=== PATIENT | male | born 1960 | race Caucasian/White ===

== ENCOUNTER 2017-08-07 15:49 | Emergency (ER) | payer SELFPAY ==
--- NOTE | 2017-08-07 16:23 | EDM.PDOC ---
ED HPI GENERAL MEDICAL PROBLEM - General Chief Complaint: Lower Extremity Injury/Pain Stated Complaint: [facility] Time Seen by Provider: 08/07/17 16:13 Source of Information: Reports: Patient History Limitations: Reports: No Limitations - History of Present Illness INITIAL COMMENTS - FREE TEXT/NARRATIVE: 48-year-old male presents via [facility] for evaluation and treatment of joint pain to the bilateral knees and feet. Reportedly the pain has been going on for several months. He states that today he is primarily having pain to the left lateral foot. Complains of stiffness from the knees down to his feet. Describes the pain as a dull ache and rates the pain as an 8 out of 10. States he is having difficulty walking today due to the stiffness. No numbness or tingling. No fevers or chills. Patient has been seen for the pain. Treatments [employer]: Reports: Other (see below) Other Treatments [employer]: tylenol 2 tabs last noc - Related Data Allergies Allergy/AdvReac Type Severity Reaction Status Date / Time No Known Allergies Allergy Verified 08/07/17 16:03 Home Meds: Home Meds Naproxen 500 mg PO BID PRN #20 tablet 08/07/17 [Rx] Past Medical History - Past Health History Medical/Surgical History: Denies Medical/Surgical History Social & Family History - Tobacco Use Smoking Status *Q: Never Smoker - Caffeine Use Caffeine Use: Reports: Soda - Recreational Drug Use Recreational Drug Use: No Review of Systems - Review of Systems Review Of Systems: See Below Constitutional: Denies: Chills, Fever Musculoskeletal: Reports: Leg Pain (knees to feet), Joint Pain (bilateral knee and bilateral ankle pain). Denies: Back Pain, Joint Swelling Skin: Denies: Erythema Neurological: Denies: Numbness, Tingling ED EXAM, GENERAL - Physical Exam Exam: See Below Exam Limited By: No Limitations General Appearance: Alert, WD/WN, No Apparent Distress Eye Exam: Bilateral Eye: Normal Inspection Ears: Normal External Exam Nose: Normal Inspection Throat/Mouth: Normal Inspection, Normal Voice, No Airway Compromise Neck: Normal Inspection Respiratory/Chest: No Respiratory Distress, Lungs Clear, Normal Breath Sounds Cardiovascular: Normal Peripheral Pulses, Regular Rate, Rhythm, No Murmur Peripheral Pulses: 3+: Posterior Tibial (L), Posterior Tibial (R), Dorsalis Pedis (L), Dorsalis Pedis (R) (Male) Exam: Scrotal Swelling Back Exam: Normal Inspection. No: Vertebral Tenderness Extremities: Normal Inspection, Non-Tender, Normal Capillary Refill, Other ( dorsiflexion and plantarflexion 5/5 bilaterally; negative babinsky sign, no clonus, 1+ achilles and 2+ patallar reflexes bilaterally). No: Joint Swelling, Domingo's Sign Neurological: Alert, Oriented, Normal Cognition Psychiatric: Normal Affect, Normal Mood Skin Exam: Warm, Dry, Normal Color Course - Vital Signs Last Recorded V/S: Last Vital Signs Temp 99.0 F 08/07/17 15:58 Pulse 87 08/07/17 15:58 Resp 20 08/07/17 15:58 BP 159/89 H 08/07/17 15:58 Pulse Ox 94 L 08/07/17 15:58 - Orders/Labs/Meds Orders: Active Orders 24 hr Category Date Time Status Foot Comp Min 3V Lt [CR] Stat Exams 08/07/17 16:36 Taken Labs: Laboratory Tests 08/07/17 08/07/17 Range/Units 19:43 19:43 WBC 10.41 H (4.23-9.07) K/mm3 RBC 5.10 (4.63-6.08) M/mm3 Hgb 15.6 (13.7-17.5) gm/L Hct 45.0 (40.1-51.0) % MCV 88.2 (79.0-92.2) fl MCH 30.6 (25.7-32.2) pg MCHC 34.7 (32.2-35.5) g/dl RDW Std Deviation 43.5 (35.1-43.9) fL Plt Count 259 (163-337) K/mm3 MPV 10.9 (9.4-12.3) fl Neut % (Auto) 80.3 H (34.0-67.9) % Lymph % (Auto) 12.1 L (21.8-53.1) % [place] % (Auto) 6.9 (5.3-12.2) % Eos % (Auto) 0.1 L (0.8-7.0) Baso % (Auto) 0.3 (0.1-1.2) % Neut # (Auto) 8.36 H (1.78-5.38) K/mm3 Lymph # (Auto) 1.26 L (1.32-3.57) K/mm3 [place] # (Auto) 0.72 (0.30-0.82) K/mm3 Eos # (Auto) 0.01 L (0.04-0.54) K/mm3 Baso # (Auto) 0.03 (0.01-0.08) K/mm3 Sodium 141 (136-145) mEq/L Potassium 3.9 (3.5-5.1) mEq/L Chloride 104 (98-107) mEq/L Carbon Dioxide 23 (21-32) mEq/L Anion Gap 17.9 H (5-15) BUN 15 (7-18) mg/dL Creatinine 1.1 (0.7-1.3) mg/dL Est Cr Clr Drug Dosing 73.20 mL/min Estimated GFR (MDRD) > 60 (>60) mL/min BUN/Creatinine Ratio 13.6 L (14-18) Glucose 110 H (74-106) mg/dL Calcium 9.9 (8.5-10.1) mg/dL Magnesium 1.7 L (1.8-2.4) mg/dl Total Bilirubin 0.6 (0.2-1.0) mg/dL AST 19 (15-37) U/L ALT 28 (16-63) U/L Alkaline Phosphatase 80 (46-116) U/L Total Protein 7.6 (6.4-8.2) g/dl Albumin 3.9 (3.4-5.0) g/dl Globulin 3.7 gm/dL Albumin/Globulin Ratio 1.1 (1-2) Meds: Medications Discontinued Medications Generic Name Dose Route Start Last Admin Trade Name Freq PRN Reason Stop Dose Admin Ketorolac Tromethamine 30 mg 08/07/17 18:00 08/07/17 18:24 Toradol IM 08/07/17 18:01 30 mg ONETIME ONE Administration Orphenadrine Citrate 100 mg 08/07/17 19:25 08/07/17 19:30 Norflex PO 08/07/17 19:26 100 mg NOW STA Administration - Radiology Interpretation Free Text/Narrative:: xray of the left foot shows no acute fractures or dislocations. - Re-Assessments/Exams Free Text/Narrative Re-Assessment/Exam: 08/07/17 19:25 The patient was discharged as I believe his pain to be arthritic in nature. Nursing staff can inform me that he was not able to walk. Questionable he is on willing or unable to due to weakness or pain. I checked on the patient. He was standing at his bedside. Shuffled forward a few steps. We then got him a walker and he was able to walk, shuffling gait, with the walker. Without the walker he is unwilling or unable to walk. He states that he cannot go home like this. I reexamine the patient. He is currently complaining of pain to the muscles. Earlier he was complaining of pain to the bilateral knees, feet and ankles. He now tells me he has pain from the knees down to his feet. Earlier when I interviewed the patient is better was not present that his brother is now present. Patient's demeanor has changed and he often looks to his brother for answers. 08/07/17 20:25 Reviewed the lab studies with the patient. Will discharge home at this time. Perception for Norflex Twice a day for 10 days written Departure - Departure Time of Disposition: 17:41 Disposition: Home, Self-Care 01 Condition: Good Clinical Impression: Joint pain - Discharge Information Prescriptions: Naproxen 500 mg PO BID PRN #20 tablet PRN Reason: Pain Instructions: Joint Pain Referrals: PCP,None [Primary Care Provider] - Christina Monsivais MD [Physician] - Forms: ED Department Discharge Additional Instructions: Take the naproxen 1 tab twice a day as needed for pain and discomfort. Take the Norflex 1 tab twice a day as needed for muscle pain and spasm. Follow-up with family medicine within 2 weeks for recheck of your symptoms. Recommend Dr. Monsivais at the [facility]. Call [phone] schedule with her. Recommend using ice for additional pain relief. He may also try topical products such as Icyhot or BenGay. Please return to the ER if your symptoms change or worsen. Use the walker as needed for mobility. - My Orders Last 24 Hours: My Active Orders 08/07/17 16:36 Foot Comp Min 3V Lt [CR] Stat - Assessment/Plan Last 24 Hours: My Active Orders 08/07/17 16:36 Foot Comp Min 3V Lt [CR] Stat
[2017-08-07] MEDS ORDERED: Ketorolac 30 MG/ML SDV IM ONE (18:00)
[2017-08-07] MEDS ORDERED: Orphenadrine 100 MG Tab.ER PO STA (19:25)
--- NOTE | 2017-08-10 09:45 | CR ---
Left foot: Four views of the left foot were obtained. Comparison: No prior foot exam. Very small plantar spur is noted. Vascular calcification is seen. No acute fracture, dislocation or other bony abnormality is seen. Incidental findings. Nothing acute is appreciated on left foot study. Diagnostic code #2
== END 2017-08-07 20:44 | disposition home or self-care (01) ==
LOC: JD.ED 15:49
DX: M25.561 Pain in right knee (principal); M25.562 Pain in left knee; M25.572 Pain in left ankle and joints of left foot; M25.571 Pain in right ankle and joints of right foot
CPT/HCPCS: 36415; 73630; 80053; 83735; 85025; 96372; 99284; A9270; J1885; 99283

== ENCOUNTER 2017-08-08 08:02 | Emergency (ER) | payer SELFPAY ==
[2017-08-08] MEDS ORDERED: Sodium Chloride 0.9% 10 ML Syringe FLUSH PRN (08:41)
[2017-08-08] MEDS ORDERED: Sodium Chloride 0.9% 1,000 ML IV SCH (08:45)
--- NOTE | 2017-08-08 08:58 | EDM.PDOC ---
<Martha Mensah - Last Filed: 08/08/17 08:53> ED HPI GENERAL MEDICAL PROBLEM - General Chief Complaint: Lower Extremity Injury/Pain Stated Complaint: [facility] Time Seen by Provider: 08/08/17 08:21 Source of Information: Reports: Patient History Limitations: Reports: No Limitations - History of Present Illness INITIAL COMMENTS - FREE TEXT/NARRATIVE: Pt returns to the ED by ambulance for increased weakness in his lower extremities. He reports being seen here yesterday and believed the shot he received helped temporarily last night, but when he awoke this morning his symptoms were worse. he reports weakness from the knees down with associated pain, tenderness to palpation, burning sensation at night and cramping. This originally started in Apr 2017 and has been getting progressively worse. He denies numbness and reports normal sensation. His weakness makes him fall frequently and unable to ambulate at home. He lives with his brothers who he believes can help him at times. He denies h/o diabetes or any other chronic problems. No associated symptoms, denies back pain or h/o back problems. Denies any recent falls, denies recent trauma or injury. Onset: Gradual Duration: Week(s): (4 months), Getting Worse Location: Reports: Lower Extremity, Left, Lower Extremity, Right Quality: Reports: Ache, Other (cramping) Severity: Moderate Improves with: Reports: None Worsens with: Reports: Movement Associated Symptoms: Reports: No Other Symptoms Left Ankle Pain Score (Numeric/FACES): 10 Bilateral Knee Pain Score (Numeric/FACES): 10 - Related Data Allergies Allergy/AdvReac Type Severity Reaction Status Date / Time No Known Allergies Allergy Verified 08/08/17 08:13 Home Meds: Home Meds Naproxen 500 mg PO BID PRN #20 tablet 08/07/17 [Rx] Past Medical History - Past Health History Medical/Surgical History: Denies Medical/Surgical History Other Musculoskeletal History: recent issues with ambulation, muscle/joint pain to lower extremities. c/o upper extremities joint pain as well. - Infectious Disease History Infectious Disease History: Reports: Chicken Pox, Measles Social & Family History - Tobacco Use Smoking Status *Q: Never Smoker Second Hand Smoke Exposure: No - Caffeine Use Caffeine Use: Reports: Soda - Recreational Drug Use Recreational Drug Use: No Review of Systems - Review of Systems Constitutional: Reports: Weakness (from the knees down). Denies: Chills, Fever Eyes: Reports: No Symptoms Ears: Reports: No Symptoms Nose: Reports: No Symptoms Mouth/Throat: Reports: No Symptoms Respiratory: Reports: No Symptoms. Denies: Shortness of Breath, Wheezing, Cough Cardiovascular: Reports: No Symptoms. Denies: Chest Pain, Edema, Lightheadedness GI/Abdominal: Reports: No Symptoms. Denies: Abdominal Pain, Diarrhea, Nausea, Vomiting Genitourinary: Reports: No Symptoms Musculoskeletal: Reports: Leg Pain (knees down bilaterally), Joint Pain (ankles bilaterally), Muscle Pain, Muscle Stiffness. Denies: Back Pain Skin: Reports: No Symptoms. Denies: Cyanosis, Pallor, Change in Color Neurological: Reports: Difficulty Walking, Weakness (legs bilaterally), Gait Disturbance. Denies: Dizziness, Headache, Numbness, Paresthesia, Tingling Psychiatric: Reports: No Symptoms ED EXAM, GENERAL - Physical Exam Exam: See Below Exam Limited By: No Limitations General Appearance: Alert, WD/WN, No Apparent Distress Ears: Normal External Exam, Hearing Grossly Normal Nose: Normal Inspection Head: Atraumatic, Normocephalic Neck: Normal Inspection, Supple, Full Range of Motion Respiratory/Chest: No Respiratory Distress, Lungs Clear, Normal Breath Sounds, No Accessory Muscle Use, Chest Non-Tender Cardiovascular: Normal Peripheral Pulses, Regular Rate, Rhythm, No Edema, No Gallop, No Murmur, No Rub GI/Abdominal: Soft, Non-Tender, No Distention Back Exam: Normal Inspection, Full Range of Motion. No: Paraspinal Tenderness, Vertebral Tenderness Extremities: Normal Inspection, No Pedal Edema, Leg Pain (to palpation below knees). No: Joint Swelling, Pallor, Redness Neurological: Alert, Oriented, CN II-XII Intact, Normal Cognition, Sensory/ Motor Deficit (unable to hold legs up against gravity, normal sensation bilaterally) Psychiatric: Normal Affect, Normal Mood Skin Exam: Warm, Dry Course - Vital Signs Last Recorded V/S: Last Vital Signs Temp 99.3 F 08/08/17 08:02 Pulse 80 08/08/17 08:02 Resp 16 08/08/17 08:02 BP 141/83 H 08/08/17 08:02 Pulse Ox 94 L 08/08/17 08:02 - Orders/Labs/Meds Orders: Active Orders 24 hr Category Date Time Status Cardiac Monitoring [RC] . DIRECTED Care 08/08/17 08:41 Active Peripheral IV Care [RC] . DIRECTED Care 08/08/17 08:41 Active Head wo Cont [CT] Stat Exams 08/08/17 08:42 Taken Lumbar Spine wo Cont [CT] Stat Exams 08/08/17 08:43 Taken Sodium Chloride 0.9% [Normal Saline] 1,000 ml Med 08/08/17 08:45 Active IV ASDIRECTED Sodium Chloride 0.9% [Saline Flush] Med 08/08/17 08:41 Active 10 ml FLUSH ASDIRECTED PRN Peripheral IV Insertion Adult [OM.PC] Stat Oth 08/08/17 08:41 Ordered Medication Orders Sodium Chloride (Normal Saline) 1,000 mls @ 125 mls/hr IV ASDIRECTED MOODY Last Admin: 08/08/17 09:05 Dose: 125 mls/hr Sodium Chloride (Saline Flush) 10 ml FLUSH ASDIRECTED PRN PRN Reason: Keep Vein Open Last Admin: 08/08/17 09:00 Dose: 10 ml Labs: Laboratory Tests 08/08/17 08/08/17 08/08/17 Range/Units 09:00 09:00 09:00 WBC 8.84 (4.23-9.07) K/mm3 RBC 5.13 (4.63-6.08) M/mm3 Hgb 15.6 (13.7-17.5) gm/L Hct 45.5 (40.1-51.0) % MCV 88.7 (79.0-92.2) fl MCH 30.4 (25.7-32.2) pg MCHC 34.3 (32.2-35.5) g/dl RDW Std Deviation 44.4 H (35.1-43.9) fL Plt Count 238 (163-337) K/mm3 MPV 10.9 (9.4-12.3) fl Neut % (Auto) 81.4 H (34.0-67.9) % Lymph % (Auto) 10.6 L (21.8-53.1) % [place] % (Auto) 7.6 (5.3-12.2) % Eos % (Auto) 0.1 L (0.8-7.0) Baso % (Auto) 0.2 (0.1-1.2) % Neut # (Auto) 7.19 H (1.78-5.38) K/mm3 Lymph # (Auto) 0.94 L (1.32-3.57) K/mm3 [place] # (Auto) 0.67 (0.30-0.82) K/mm3 Eos # (Auto) 0.01 L (0.04-0.54) K/mm3 Baso # (Auto) 0.02 (0.01-0.08) K/mm3 ESR 15 (0-15) mm/hr Sodium 142 (136-145) mEq/L Potassium 4.1 (3.5-5.1) mEq/L Chloride 106 (98-107) mEq/L Carbon Dioxide 25 (21-32) mEq/L Anion Gap 15.1 H (5-15) BUN 17 (7-18) mg/dL Creatinine 1.1 (0.7-1.3) mg/dL Est Cr Clr Drug Dosing 75.58 mL/min Estimated GFR (MDRD) > 60 (>60) mL/min BUN/Creatinine Ratio 15.5 (14-18) Glucose 106 (74-106) mg/dL Calcium 10.2 H (8.5-10.1) mg/dL Magnesium 1.9 (1.8-2.4) mg/dl Total Bilirubin 0.9 (0.2-1.0) mg/dL AST 17 (15-37) U/L ALT 30 (16-63) U/L Alkaline Phosphatase 82 (46-116) U/L CK-MB (CK-2) 1.6 (0-3.6) ng/ml C-Reactive Protein < 0.2 (<1.0) mg/dL Total Protein 7.8 (6.4-8.2) g/dl Albumin 4.0 (3.4-5.0) g/dl Globulin 3.8 gm/dL Albumin/Globulin Ratio 1.1 (1-2) Meds: Medications Generic Name Dose Route Start Last Admin Trade Name Freq PRN Reason Stop Dose Admin Sodium Chloride 1,000 mls @ 125 mls/hr 08/08/17 08:45 08/08/17 09:05 Normal Saline IV 125 mls/hr ASDIRECTED MOODY Administration Sodium Chloride 10 ml 08/08/17 08:41 08/08/17 09:00 Saline Flush FLUSH 10 ml ASDIRECTED PRN Administration Keep Vein Open Departure - Departure Disposition: DC/Tfer to Acute Hospital 02 Clinical Impression: Bone spur of other site, Bilateral leg weakness Spinal stenosis Qualifiers: Spinal region: lumbar Neurogenic claudication status: with neurogenic claudication Qualified Code(s): M48.062 - Spinal stenosis, lumbar region with neurogenic claudication - Discharge Information Referrals: PCP,None [Primary Care Provider] - Forms: ED Department Discharge - My Orders Last 24 Hours: My Active Orders 08/08/17 08:41 Cardiac Monitoring [RC] . DIRECTED Peripheral IV Care [RC] . DIRECTED Sodium Chloride 0.9% [Saline Flush] 10 ml FLUSH ASDIRECTED PRN Peripheral IV Insertion Adult [OM.PC] Stat 08/08/17 08:42 Head wo Cont [CT] Stat 08/08/17 08:43 Lumbar Spine wo Cont [CT] Stat 08/08/17 08:45 Sodium Chloride 0.9% [Normal Saline] 1,000 ml IV ASDIRECTED - Assessment/Plan Last 24 Hours: My Active Orders 08/08/17 08:41 Cardiac Monitoring [RC] . DIRECTED Peripheral IV Care [RC] . DIRECTED Sodium Chloride 0.9% [Saline Flush] 10 ml FLUSH ASDIRECTED PRN Peripheral IV Insertion Adult [OM.PC] Stat 08/08/17 08:42 Head wo Cont [CT] Stat 08/08/17 08:43 Lumbar Spine wo Cont [CT] Stat 08/08/17 08:45 Sodium Chloride 0.9% [Normal Saline] 1,000 ml IV ASDIRECTED <Lavon Dave - Last Filed: 08/08/17 11:17> Review of Systems - Review of Systems Review Of Systems: See Below Course - Re-Assessments/Exams Free Text/Narrative Re-Assessment/Exam: 08/08/17 11:13 I assessed the patient myself and I agree with Martha's assessment and plan. His CBC and CMP look good. His ESR and CRP are negative. The CT of his head looks good. The CT of his lumbar spine shows posterior spur formation at L3/L4 may result in spinal stenosis. Recommend MRI for further evaluation. We do not have an MRI today. I called [facility] in [place] and Dr Shepard accepted the patient. He will need to go by ambulance. Departure - Departure Time of Disposition: 11:15 Condition: Fair
--- NOTE | 2017-08-10 11:27 | CT ---
Head CT Technique: Multiple axial sections through the brain were obtained. Intravenous contrast was not utilized. Comparison: No previous intracranial imaging. Findings: Ventricles along the basal cisterns and sulci over the convexities are within normal limits for the patient's age. No abnormal parenchymal densities are seen. No evidence of intracranial hemorrhage. No midline shift or mass effect is seen. Bone window settings were reviewed which show no acute calvarial abnormality. Visualized sinuses are clear. Impression: 1. Nothing acute is identified on noncontrast head CT exam. Diagnostic code #1 I agree with preliminary report from [facility], finalized at 08/08/17, 11:08 AM Central Time
--- NOTE | 2017-08-10 11:27 | CT ---
CT lumbar spine Technique: Multiple axial sections were obtained from the bottom of T11 inferiorly to the L5-S1 disc. Reconstructed coronal and sagittal images were obtained. Comparison: No prior lumbar spine imaging. Findings: T11-T12: Posterior disc is preserved. No central canal stenosis or neural foraminal stenosis is seen. T12-L1: Posterior disc is maintained. No central canal stenosis or neural foraminal stenosis is seen. L1-L2: Posterior disc has a mostly planar margin. No central canal stenosis or neural foraminal stenosis is seen. L2-L3: Minimal circumferential disc bulge is seen. Posterior disc maintains a mostly planar margin. No central canal stenosis or neural foraminal stenosis is seen. L3-L4: Circumferential disc bulge is seen as well as posterior spurring. Findings cause mild central canal stenosis. Neural foramina are felt to be patent. L4-L5: Minimal circumferential disc bulge is seen. No central canal stenosis or neural foraminal stenosis is seen. L5-S1: Posterior disc space narrowing is seen. Mild diffuse posterior disc bulge is present. No central canal stenosis or neural foraminal stenosis is seen. No fracture is identified. Scattered anterior endplate osteophytes are seen. Sclerotic areas are seen within the right iliac bone which are felt to be incidental. Impression: 1. Degenerative change as noted above. Most prominent finding at L3-L4 with circumferential disc bulging and posterior spurring causing mild central canal stenosis. Diagnostic code #3 I agree with preliminary report from [facility], finalized at 08/08/17, 11:12 AM Central Time
== END 2017-08-08 11:29 ==
LOC: JD.ED 08:02
DX: M48.062 Spinal stenosis, lumbar region with neurogenic claudication (principal); M62.81 Muscle weakness (generalized); M25.561 Pain in right knee; M25.562 Pain in left knee
CPT/HCPCS: 36415; 70450; 72131; 80053; 82553; 83735; 85025; 85652; 86140; 96360; 96361; 99285; J7040; J7050; 99283

== ENCOUNTER 2017-09-11 02:10 | Emergency (ER) | payer MEDICAID, OTHER ==
--- NOTE | 2017-09-11 04:35 | EDM.PDOC ---
ED HPI GENERAL MEDICAL PROBLEM - General Chief Complaint: Genitourinary Problem Stated Complaint: [facility] Time Seen by Provider: 09/11/17 04:14 Source of Information: Reports: Patient History Limitations: Reports: No Limitations - History of Present Illness INITIAL COMMENTS - FREE TEXT/NARRATIVE: The patient states that he has had an enlarged left scrotum for approximately a year, but that it became much worse tonight. It is now painful and erythematous. No recent fever. No urinary symptoms. No recent nausea or vomiting. The patient has some constipation, but no recent diarrhea. Medical records indicate that the patient was transferred to [facility] from this ED on 08/08/2017 for the inability to walk. There was concern that he had spinal stenosis, but the patient states that it was concluded that he does not. They even performed a thigh muscle biopsy. The patient states that it is unknown why he is having lower extremity weakness and the inability to walk. He states that while in [place], someone evaluated his scrotum and told him that there was water in there, or something to that effect (hydrocele?). They recommended that he have surgery sometime down the road. The patient states that he has not scheduled that surgery. The patient does not have a PCP. Left Pain Score (Numeric/FACES): 8 - Related Data Allergies Allergy/AdvReac Type Severity Reaction Status Date / Time No Known Allergies Allergy Verified 09/12/17 15:39 Home Meds: Home Meds Naproxen 500 mg PO BID PRN #20 tablet 08/07/17 [Rx] Ciprofloxacin HCl [Cipro] 500 mg PO Q12H 09/12/17 [History] Naproxen Sodium [Aleve] 220 mg PO DAILY 09/12/17 [History] Past Medical History Musculoskeletal History: Reports: Other (See Below) (BLE weakness, unable to walk, cause unknown) - Infectious Disease History Infectious Disease History: Reports: Chicken Pox, Measles - Past Surgical History Musculoskeletal Surgical History: Reports: Other (See Below) (Right thigh muscle biopsy around 08/10/2017) Social & Family History - Tobacco Use Smoking Status *Q: Never Smoker - Caffeine Use Caffeine Use: Reports: None - Alcohol Use Alcohol Use History: Yes Alcohol Use Frequency: Rarely - Recreational Drug Use Recreational Drug Use: No - Living Situation & Occupation Living situation: Reports: Single, with Family (2 brothers) Occupation: Unemployed ED ROS GENERAL - Review of Systems Review Of Systems: ROS reveals no pertinent complaints other than HPI. ED EXAM, RENAL/ - Physical Exam Exam: See Below Exam Limited By: No Limitations General Appearance: Alert, WD/WN, No Apparent Distress (Male) Exam: Other (Very large left scrotum, with mild tenderness to palpation. Right testicle is identifiable, not enlarged, nontender. Left testicle is difficult to identify, but when found, does not feel to be enlarged , and is not tender.) Course - Vital Signs Last Recorded V/S: Last Vital Signs Temp 37.0 C 09/11/17 02:33 Pulse 82 09/11/17 02:33 Resp 18 09/11/17 02:33 BP 128/74 09/11/17 02:33 Pulse Ox 95 09/11/17 02:33 - Orders/Labs/Meds Labs: Laboratory Tests 09/11/17 09/11/17 Range/Units 04:49 04:49 WBC 12.13 H (4.23-9.07) K/mm3 RBC 4.77 (4.63-6.08) M/mm3 Hgb 14.5 (13.7-17.5) gm/L Hct 42.9 (40.1-51.0) % MCV 89.9 (79.0-92.2) fl MCH 30.4 (25.7-32.2) pg MCHC 33.8 (32.2-35.5) g/dl RDW Std Deviation 43.3 (35.1-43.9) fL Plt Count 183 (163-337) K/mm3 MPV 11.2 (9.4-12.3) fl Neutrophils % (Manual) 85 H (40-60) % Band Neutrophils % 0 (0-10) % Lymphocytes % (Manual) 7 L (20-40) % Atypical Lymphs % 1 % Monocytes % (Manual) 7 (2-10) % Eosinophils % (Manual) 0 L (0.8-7.0) % Basophils % (Manual) 0 L (0.2-1.2) Platelet Estimate Adequate Plt Morphology Comment Normal RBC Morph Comment Normal Sodium 141 (136-145) mEq/L Potassium 4.2 (3.5-5.1) mEq/L Chloride 106 (98-107) mEq/L Carbon Dioxide 28 (21-32) mEq/L Anion Gap 11.2 (5-15) BUN 19 H (7-18) mg/dL Creatinine 1.1 (0.7-1.3) mg/dL Est Cr Clr Drug Dosing 68.44 mL/min Estimated GFR (MDRD) > 60 (>60) mL/min BUN/Creatinine Ratio 17.3 (14-18) Glucose 114 H (74-106) mg/dL Calcium 9.6 (8.5-10.1) mg/dL Total Bilirubin 0.2 (0.2-1.0) mg/dL AST 16 (15-37) U/L ALT 30 (16-63) U/L Alkaline Phosphatase 90 (46-116) U/L Total Protein 7.1 (6.4-8.2) g/dl Albumin 3.5 (3.4-5.0) g/dl Globulin 3.6 gm/dL Albumin/Globulin Ratio 1.0 (1-2) - Re-Assessments/Exams Free Text/Narrative Re-Assessment/Exam: 09/11/17 04:34 The patient's left scrotum is markedly enlarged. Because this is on the left, a varicocele is more likely than a hydrocele, although a hydrocele is also possible. A spermatocele or epididymal cyst are unlikely. I have ordered an ultrasound of the scrotum to evaluate. I also ordered a CBC and a CMP in case the patient does require surgery, although I think that is unlikely. 09/11/17 06:13 Ultrasound of the scrotum is read by [facility] as "Large left complex hydrocele containing debris, likely infected. Otherwise, unremarkable study." 09/11/17 06:22 The above ultrasound findings were discussed with the patient. I would like to discuss the case with Urology. If the patient requires transfer, he would prefer to go to the hospital that he was at 3 weeks ago. Reviewing prior medical records, it appears that the patient was transferred to [facility] on . 09/11/17 06:[address] Garrett at 06:24. Just because there is debris seen on the ultrasound does not mean that the hydrocele is necessarily infected, especially since the clinical picture does not really fit. Nevertheless, he recommended that we treat the patient with oral ciprofloxacin for 10 days, then have the patient follow-up as an outpatient. He does not see an indication for transfer to their facility even though it may be difficult for the patient to follow-up, with his ambulatory problems. Departure - Departure Time of Disposition: 06:30 Disposition: Home, Self-Care 01 Condition: Good Clinical Impression: Hydrocele - Discharge Information *PRESCRIPTION DRUG MONITORING PROGRAM REVIEWED*: Not Applicable *COPY OF PRESCRIPTION DRUG MONITORING REPORT IN PATIENT MAKAYLA: Not Applicable Instructions: Hydrocele, Adult Referrals: PCP,None [Primary Care Provider] - Juan F Garrett MD [Ordering Only Provider] - Forms: ED Department Discharge Additional Instructions: You were seen in the emergency room for a significantly swollen left scrotum. Workup in the ER included blood work and an ultrasound of your scrotum. The ultrasound found that you have a hydrocele. Your case was discussed with the Urologist Dr. Garrett. He recommended that you take the antibiotic ciprofloxacin twice a day for 10 days, and that you follow-up in his office. He did not see a reason to transfer you to [facility]. A prescription for the antibiotic Cipro floxacillin has been sent to the [place] pharmacy located in the [facility]. Take one tablet every 12 hours , starting this morning, 09/11/2017, as prescribed. Contact the office of Dr. Garrett today, to make an appointment to see him this coming week. If any other problems, please do not hesitate to return to the ER.
--- NOTE | 2017-09-11 08:48 | US ---
Testicular ultrasound: Multiple real-time images of the testicles were obtained. Left side of the scrotum shows a large hydrocele which contains echogenic debris. Small right-sided hydrocele is seen. Both testicles have a homogeneous ultrasound appearance without intratesticular abnormality. Both arterial and venous blood flow are seen within the testicles. Measurements: Right testicle: 4.9 x 1.9 x 3.6 cm Left testicle: 4.3 x 2.0 x 4.1 cm Impression: 1. Large left-sided hydrocele and small right-sided hydrocele. Left hydrocele shows echogenic debris, please exclude any signs of infection. 2. No intratesticular abnormality is seen. Diagnostic code #3 Agree with preliminary report issued by [facility] ([facility] preliminary report dictated on 09/11/17, 6:56 AM Central Time)
== END 2017-09-11 06:53 | disposition home or self-care (01) ==
LOC: JD.ED 02:10
DX: N43.3 Hydrocele, unspecified (principal); Z79.899 Other long term (current) drug therapy
CPT/HCPCS: 36415; 76870; 76870-26; 80053; 85007; 85027; 93975; 99284; 99284-25

== ENCOUNTER 2017-09-12 15:27 | Emergency (ER) | payer MEDICAID ==
--- NOTE | 2017-09-12 16:03 | EDM.PDOC ---
ED HPI GENERAL MEDICAL PROBLEM - General Chief Complaint: Genitourinary Problem Stated Complaint: [facility] Time Seen by Provider: 09/12/17 16:03 Source of Information: Reports: Patient History Limitations: Reports: No Limitations - History of Present Illness INITIAL COMMENTS - FREE TEXT/NARRATIVE: 56-year-old male once again presents to the ED due to pain and swelling left hemiscrotum. Patient states he can hardly walk because of the severity of the swelling of his left hemiscrotum. He was seen in the ER yesterday and identified to have a large left-sided hydrocele. 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 It's unclear why at this time it is decided to become much larger. Patient states that it's gradually enlarged over the last year. Is making it difficult for him to find his penis to even void. States he has just dribbles at times. He states is more of a pulling sensation and of course is a little bit better in the morning when he first wakes up and as the day goes on it gets larger and more painful. He was seen in [facility] yesterday as well and given IV fluids Toradol and Reglan and sent home. Currently he will likely require definitive urological management with tying off of the communicating hydrocele. He is currently on Cipro as well due to concerns for epididymo--orchitis but this does not clinically seem to be the problem Onset: Unknown/Unsure (Seropositive over a year.) Duration: Chronic, Getting Worse Location: Reports: Other (Left hemiscrotum swelling and pain) Quality: Reports: Ache, Pressure Severity: Moderate Improves with: Reports: Rest Worsens with: Reports: Movement Context: Denies: Activity, Exercise (Standing and trying to walk.), Lifting, Sick Contact, Trauma, Other Associated Symptoms: Denies: No Other Symptoms, Confusion, Chest Pain, Cough, cough w sputum, Diaphoresis, Fever/Chills, Headaches, Loss of Appetite, Malaise , Nausea/Vomiting, Rash, Seizure, Shortness of Breath, Syncope Treatments CABINET MAKER: Reports: Other (see below) (None.) Groin Pain Score (Numeric/FACES): 8 - Related Data Allergies Allergy/AdvReac Type Severity Reaction Status Date / Time No Known Allergies Allergy Verified 07/14/18 15:39 Home Meds: Home Meds Naproxen 500 mg PO BID PRN #20 tablet 08/07/17 [Rx] Ciprofloxacin HCl [Cipro] 500 mg PO Q12H 09/12/17 [History] Naproxen Sodium [Aleve] 220 mg PO DAILY 09/12/17 [History] Past Medical History - Past Health History Medical/Surgical History: Denies Medical/Surgical History Genitourinary History: Reports: Other (See Below) Other Genitourinary History: hydrocele L) testicle. Other Musculoskeletal History: recent issues with ambulation, muscle/joint pain to lower extremities. c/o upper extremities joint pain as well. - Infectious Disease History Infectious Disease History: Reports: Chicken Pox, Measles - Past Surgical History Musculoskeletal Surgical History: Reports: Other (See Below) Other Musculoskeletal Surgeries/Procedures:: took muscles for biopsy Social & Family History - Tobacco Use Smoking Status *Q: Never Smoker - Caffeine Use Caffeine Use: Reports: Soda - Recreational Drug Use Recreational Drug Use: No - Living Situation & Occupation Living situation: Reports: Single Occupation: Employed ED ROS GENERAL - Review of Systems Review Of Systems: See Below Constitutional: Denies: Fever, Chills, Malaise, Weakness, Fatigue, Weight Loss HEENT: Reports: No Symptoms Respiratory: Reports: No Symptoms Cardiovascular: Reports: Dyspnea on Exertion Endocrine: Reports: No Symptoms GI/Abdominal: Reports: Constipation (Some problems with constipation intermittently) : Reports: Other (Primary reason for attending the ED is due to severe left hemiscrotal swelling due to a very large hydrocele confirmed by ultrasound yesterday. Clinically it appears to contain greater than 250 mils of fluid.) Musculoskeletal: Reports: Other (Chronic right sided leg weakness. He was sent down to [place] for assessment for spinal stenosis. He ended up having a muscle biopsy from his quadriceps which apparently turned out to be normal.) Skin: Reports: Other Neurological: Reports: No Symptoms (Kayleen developing a rash on the inner aspect of his thigh due to the scrotum rubbing against his medial thigh on the left side) Psychiatric: Reports: No Symptoms Hematologic/Lymphatic: Reports: No Symptoms Immunologic: Reports: No Symptoms ED EXAM, RENAL/ - Physical Exam Exam: See Below Exam Limited By: No Limitations General Appearance: Alert, WD/WN, Anxious (Mildly anxious) Respiratory/Chest: No Respiratory Distress, Normal Breath Sounds, No Accessory Muscle Use Cardiovascular: Normal Peripheral Pulses, Regular Rate, Rhythm, No Edema, No Gallop, No Murmur GI/Abdominal: Normal Bowel Sounds, Soft, Non-Tender, No Organomegaly, Other (I could not palpate any definitive hernia in the left inguinal area.) (Male) Exam: Other (Right testicle is easy to locate and identify and is riding high on the right side. I could not locate the left testicle is is of obscured by a very large hydrocele. His penis or penile shaft is not visible. He has a little bit of foreskin over the urethra.) Extremities: Normal Inspection, Normal Range of Motion Neurological: Alert, Oriented, CN II-XII Intact, Normal Cognition Psychiatric: Normal Affect, Normal Mood Skin Exam: Other (Patient has a candidiasis of the medial aspect of his left thigh.) Course - Vital Signs Last Recorded V/S: Last Vital Signs Temp 36.3 C 09/12/17 17:37 Pulse 82 09/12/17 17:37 Resp 16 09/12/17 17:37 BP 138/89 09/12/17 17:37 Pulse Ox 96 09/12/17 17:37 - Orders/Labs/Meds Orders: Active Orders 24 hr Category Date Time Status CULTURE BODY FLUID + SMEAR [RM] Stat Lab 09/12/17 16:40 Received Meds: Medications Discontinued Medications Generic Name Dose Route Start Last Admin Trade Name Bora PRN Reason Stop Dose Admin Lidocaine/Epinephrine 20 ml 09/12/17 16:28 09/12/17 16:35 Xylocaine 1% With Epinephrine 1:100,000 INJECT 09/12/17 16:29 20 ml ONETIME ONE Administration - Radiology Interpretation Free Text/Narrative:: 56-year-old male presents to the ED with a chronic swelling in his left hemiscrotum or at least a year. Over the last several weeks the area has become increasingly enlarged and swollen and heavy. He has to hang onto his scrotum to walk and to sit. It's getting the point he can't find his penis to void and just has to dribble the urine out. This is left him with an unkept state. He has developed a medial candidiasis of his thigh due to scrotum rubbing against his thigh and of course with increased heat candidiasis is set up. Discussed the problem with the patient. There is no doubt this will be a communicating hydrocele and at some point he will require surgical management with tying off of the communication in the inguinal area either by urology or general surgery. I will offered him drainage of the hydrocele today which he wishes to pursue. This will be done under local anesthetic. He was advised is likely to recur but one does not know how long it would take. - Re-Assessments/Exams Free Text/Narrative Re-Assessment/Exam: 09/12/17 17:08 I removed approximately 550+ mils of grayish colored fluid from left-sided hydrocele. Ultrasound was use to guide the initial procedure but the testicle itself was posterior and inferior to the puncture site. We got about three quarters of the hydrocele before the 16-gauge catheter lawn used for the procedure occluded. Patient tolerated the procedure extremely well. I placed one 4 hole Vicryl suture in the wound to provide hemostasis. He will follow out on its own. Patient needs to follow-up with general surgery for urology. I believe Dr. Demarco would probably take this on as he is going to have a communicating hydrocele without hernia. He needs the hydrocele resected in his left inguinal area. It was sent for culture and smear. 09/12/17 17:19 patient is advised to follow-up with Dr. Demarco over at [facility] since he wishes the procedure could be done here in [place] versus travel to [place] which is difficult for him as he does not drive. I believe Dr. Ordonez had just spoken with Dr. Molina ankle urologist in [place] but it' s unclear when appointment can be arranged. Departure - Departure Time of Disposition: 17:10 Disposition: Home, Self-Care 01 Condition: Fair Clinical Impression: Hydrocele in adult, Tinea cruris - Discharge Information *PRESCRIPTION DRUG MONITORING PROGRAM REVIEWED*: Not Applicable *COPY OF PRESCRIPTION DRUG MONITORING REPORT IN PATIENT MAKAYLA: Not Applicable Instructions: Hydrocele, Adult Referrals: Ravinder Seo PA-C [Primary Care Provider] - Forms: ED Department Discharge Additional Instructions: Evaluation the emergency room today due to persistent pain and discomfort from large left-sided hydrocele which is a collection of fluid like a bag of water in the left side of your scrotum. This is called a communicating hydrocele which means that there is a communication with the abdominal cavity. You were born this way. It is identified at this time. Due to the amount of discomfort here experiencing decision made to drain as much fluid from the hydrocele as possible and we did drain approximately 600 mils of fluid from the hydrocele sac. There is no guarantee that it will just fill up again in the next few days or over the next several weeks. Definitive management is going to be surgical. This you require a hernia like surgery in your left inguinal area to find the communicating canal from the abdominal cavity to the scrotum. This needs to be tied off or ligated. Once this is completed the hydrocele will go away. In the meantime I would suggest use of Lamisil cream which is [id number] applied to the rash on the inner aspect of your left thigh and the bottom of your scrotum as it has a yeast infection because of its size. Also of course the areas but very hard to keep clean. One stitch was placed in the puncture wound and this will fall out on its own over the next 7-10 days. You may believe and shower as per normal. Just making an appointment to see Dr. Demarco over at the [facility] as he has a surgeon that may decide to perform the surgery you need to prevent the hydrocele from reoccurring and put him into the problem. If not she will require urologist to perform the surgery but there is no urology services available here in [place] it would have to be done in [place]. The number to call is [phone] to make an appointment to see Dr. Demarco - My Orders Last 24 Hours: My Active Orders 09/12/17 16:40 CULTURE BODY FLUID + SMEAR [RM] Stat - Assessment/Plan Last 24 Hours: My Active Orders 09/12/17 16:40 CULTURE BODY FLUID + SMEAR [RM] Stat
[2017-09-12] MEDS ORDERED: Lidocaine 1% with EPINEPHrine 1:100,000 20 ML MDV INJECT ONE (16:28)
[2017-09-12] MEDS ORDERED: Magnesium Hydroxide 400 MG/5 ML Susp 30 ML Cup PO ONE (18:50)
== END 2017-09-12 18:59 | disposition home or self-care (01) ==
LOC: JD.ED 15:27 → SUPCPDRO 15:27 → JD.ED 18:59
DX: N43.3 Hydrocele, unspecified (principal); B35.6 Tinea cruris
CPT/HCPCS: 55000; 87070; 87205; 99284; A9270; 10160

== ENCOUNTER 2017-10-21 20:07 | Emergency (ER) | payer MEDICAID ==
--- NOTE | 2017-10-21 20:54 | EDM.PDOC ---
ED HPI GENERAL MEDICAL PROBLEM - General Chief Complaint: Abdominal Pain Stated Complaint: RECTAL BLEEDING/CONSTIPATION Time Seen by Provider: 10/21/17 20:31 Source of Information: Reports: Patient, Other (Neighbor) History Limitations: Reports: No Limitations - History of Present Illness INITIAL COMMENTS - FREE TEXT/NARRATIVE: The patient feels that he is constipated. He states that his last bowel movement was this past 10/18/2017. He also reports having some blood associated with a bowel movement on 10/18/2017. He states that he has been taking magnesium citrate, although nothing else to treat his constipation. He denies a history of constipation. The patient's PCP is Shey Mccann. Abdomen Pain Score (Numeric/FACES): 5 - Related Data Allergies Allergy/AdvReac Type Severity Reaction Status Date / Time No Known Allergies Allergy Verified 09/30/17 19:22 Home Meds: Home Meds Tamsulosin HCl [Flomax] 0.4 mg PO DAILY #30 cap.er.24h 10/03/17 [Rx] Past Medical History Genitourinary History: Reports: Other (See Below) (left hydrocele) Musculoskeletal History: Reports: Other (See Below) (stiffness and weakness of bilateral lower extremities, of undetermined etiology) - Infectious Disease History Infectious Disease History: Reports: Chicken Pox, Measles - Past Surgical History GI Surgical History: Reports: Hernia, Inguinal Musculoskeletal Surgical History: Reports: Other (See Below) (right quadriceps muscle bx around 08/10/2017 - benign) Social & Family History - Tobacco Use Smoking Status *Q: Never Smoker - Caffeine Use Caffeine Use: Reports: None - Alcohol Use Alcohol Use History: No - Recreational Drug Use Recreational Drug Use: No - Living Situation & Occupation Living situation: Reports: Single, with Family (2 brothers) Occupation: Employed ([employer]) ED ROS GENERAL - Review of Systems Review Of Systems: ROS reveals no pertinent complaints other than HPI. ED EXAM, GI/ABD - Physical Exam Exam: See Below Exam Limited By: No Limitations General Appearance: Alert, WD/WN, No Apparent Distress Eyes: Bilateral: Normal Appearance, EOMI Ears: Normal External Exam, Hearing Grossly Normal Nose: Normal Inspection, No Blood Throat/Mouth: Normal Inspection, Normal Lips, Normal Voice, No Airway Compromise Head: Atraumatic, Normocephalic Neck: Normal Inspection, Full Range of Motion Respiratory/Chest: No Respiratory Distress, Lungs Clear, Normal Breath Sounds, No Accessory Muscle Use Cardiovascular: Normal Peripheral Pulses, Regular Rate, Rhythm, No Edema, No Gallop, No JVD, No Murmur, No Rub GI/Abdominal Exam: Normal Bowel Sounds, Soft, Non-Tender, No Organomegaly, No Distention, No Abnormal Bruit, No Mass (Male) Exam: Deferred Rectal (Males) Exam: Normal Rectal Tone, Prostate Normal, Heme + Stool (trace), Hemorrhoids (non-thrombosed, left), Other (No stool in rectum. Light brown stool on finger.) Back Exam: Normal Inspection, Full Range of Motion, NT Extremities: No Pedal Edema, Normal Capillary Refill, Other (Stiff, weak LE's) Neurological: Alert, Oriented, Normal Cognition Psychiatric: Normal Affect Skin Exam: Warm, Dry, Intact, Normal Color, No Rash Course - Vital Signs Last Recorded V/S: Last Vital Signs Temp 36.9 C 10/21/17 20:19 Pulse 92 10/21/17 20:19 Resp 20 10/21/17 20:19 BP 143/83 H 10/21/17 20:19 Pulse Ox 94 L 10/21/17 20:19 - Orders/Labs/Meds Orders: Active Orders 24 hr Category Date Time Status Abdomen 1V Flat [CR] Stat Exams 10/21/17 20:51 Taken - Re-Assessments/Exams Free Text/Narrative Re-Assessment/Exam: 10/21/17 21:59 Abdominal flat radiograph appears to demonstrate a modest amount of stool throughout the colon, more on the right than the left. Otherwise nonspecific bowel gas pattern. Formal read per the Radiologist pending. Departure - Departure Time of Disposition: 22:08 Disposition: Home, Self-Care 01 Condition: Good Clinical Impression: External hemorrhoid - Discharge Information *PRESCRIPTION DRUG MONITORING PROGRAM REVIEWED*: Not Applicable *COPY OF PRESCRIPTION DRUG MONITORING REPORT IN PATIENT MAKAYLA: Not Applicable Instructions: Hemorrhoids Referrals: Shey Mccann PA [Primary Care Provider] - Forms: ED Department Discharge Additional Instructions: You were seen in the emergency room for feeling constipated and having blood from the rectum with a bowel movement. Workup in the ER included an abdominal x-ray, which showed only a modest amount of stool in the colon, not consistent with constipation. On physical examination, you have a left-sided external hemorrhoid, which can cause some bleeding with defecation. Because it is not thrombosed, it does not require surgical attention. We recommend that you increase the fiber in your diet with [id number] Metamucil. Start with a small dose in a large glass of water, daily, then increase the quantity as you develop tolerance to it. Follow-up with your PCP, Shey Mccann, as needed. If any other problems, please do not hesitate to return to the ER. - My Orders Last 24 Hours: My Active Orders 10/21/17 20:51 Abdomen 1V Flat [CR] Stat - Assessment/Plan Last 24 Hours: My Active Orders 10/21/17 20:51 Abdomen 1V Flat [CR] Stat
--- NOTE | 2017-10-26 07:30 | CR ---
Abdomen: Supine view of the abdomen was obtained. Comparison: Prior abdominal x-ray of 10/03/17. Bowel gas pattern is normal. No abnormal calcifications or soft tissue abnormality is seen. Bony structures are unremarkable. Impression: 1. No abnormality is seen on supine abdominal x-ray. Diagnostic code #1
== END 2017-10-21 22:17 | disposition home or self-care (01) ==
LOC: JD.ED 20:07
DX: K64.4 Residual hemorrhoidal skin tags (principal); Z79.899 Other long term (current) drug therapy
CPT/HCPCS: 74018; 74018-26; 99283

== ENCOUNTER 2017-12-02 12:59 | Emergency (ER) | payer MEDICAID ==
--- NOTE | 2017-12-02 13:10 | EDM.PDOC ---
ED HPI GENERAL MEDICAL PROBLEM - General Chief Complaint: Abdominal Pain Stated Complaint: [facility] Time Seen by Provider: 12/02/17 13:09 - History of Present Illness INITIAL COMMENTS - FREE TEXT/NARRATIVE: 56-year-old male presents emergency room with abdominal discomfort. Patient has known bilateral inguinal hernias and is scheduled to have this repaired in [place]. The patient has ALS significant symptoms but a fairly new diagnosis was recently started on 2 medications and is wondering if this is causing some of the nausea. He has mildly worsening abdominal discomfort seems to be worse with the nausea. He denies any fevers chills no breathing difficulty shortness of breath or chest pain. He has also noticed increased weakness in his legs. Interestingly the patient has had increased weakness since Thursday of his lower extremities and now he has noticed weakness in his upper extremities. The patient was started on those 2 medications on Thursday he also received a flu shot on Thursday - Related Data Allergies Allergy/AdvReac Type Severity Reaction Status Date / Time No Known Allergies Allergy Verified 09/30/17 19:22 Home Meds: Home Meds Tamsulosin HCl [Flomax] 0.4 mg PO DAILY #30 cap.er.24h 10/03/17 [Rx] Dextromethorphan HBr/Quinidine [Nuedexta 20-10 MG] 1 tab PO DAILY 12/02/17 [ History] Riluzole 50 mg PO DAILY 12/02/17 [History] Past Medical History - Past Health History Medical/Surgical History: Denies Medical/Surgical History Gastrointestinal History: Reports: Chronic Constipation Genitourinary History: Reports: Other (See Below) Other Genitourinary History: had scrotum drained of fluids;hydrocele Musculoskeletal History: Reports: Other (See Below) Other Musculoskeletal History: recent issues with ambulation, muscle/joint pain to lower extremities. c/o upper extremities joint pain as well. Neurological History: Reports: Other (See Below) Other Neuro History: ALS diagnosis 3-4 weeks ago per pt report - Infectious Disease History Infectious Disease History: Reports: Chicken Pox, Measles - Past Surgical History GI Surgical History: Reports: Hernia, Inguinal Musculoskeletal Surgical History: Reports: Other (See Below) Social & Family History - Caffeine Use Caffeine Use: Reports: None - Living Situation & Occupation Living situation: Reports: Single, with Family (2 brothers) Occupation: Employed ([employer]) ED ROS GENERAL - Review of Systems Review Of Systems: See Below Constitutional: Reports: No Symptoms HEENT: Reports: No Symptoms Respiratory: Reports: No Symptoms Cardiovascular: Reports: No Symptoms Endocrine: Reports: No Symptoms GI/Abdominal: Reports: Abdominal Pain, Nausea. Denies: Constipation, Diarrhea : Reports: No Symptoms Musculoskeletal: Reports: Other (Increased leg weakness) Skin: Reports: No Symptoms Neurological: Reports: Other (He's had some mood disorder problems thought to be related to the ALS.) Psychiatric: Reports: No Symptoms Hematologic/Lymphatic: Reports: No Symptoms ED EXAM, GI/ABD - Physical Exam Exam: See Below Exam Limited By: No Limitations General Appearance: Alert, No Apparent Distress Head: Atraumatic, Normocephalic Neck: Normal Inspection, Supple, Non-Tender, Full Range of Motion. No: Lymphadenopathy (L), Lymphadenopathy (R) Respiratory/Chest: No Respiratory Distress, Lungs Clear, Normal Breath Sounds Cardiovascular: Regular Rate, Rhythm, No Edema, No Murmur GI/Abdominal Exam: Normal Bowel Sounds, Soft, Other (Mild nonspecific abdominal discomfort no localizing findings no rigidity rebound or guarding noted) Extremities: Other (With gentle testing at the bedside the patient demonstrates decreased strength in his lower extremities but according to him this is normal for this stage of his ALS) Neurological: Alert, Oriented, Normal Cognition Lymphatic: No Adenopathy Course - Vital Signs Last Recorded V/S: Last Vital Signs Temp 36.9 C 12/02/17 13:04 Pulse 77 12/02/17 13:04 Resp 16 12/02/17 13:04 BP 115/80 12/02/17 13:04 Pulse Ox 95 12/02/17 13:04 - Orders/Labs/Meds Orders: Active Orders 24 hr Category Date Time Status Abdomen 2V AP Flat Upright [CR] Stat Exams 12/02/17 14:06 Taken Labs: Laboratory Tests 12/02/17 12/02/17 12/02/17 Range/Units 14:21 14:21 14:35 WBC 8.16 (4.23-9.07) K/mm3 RBC 4.54 L (4.63-6.08) M/mm3 Hgb 14.3 (13.7-17.5) gm/L Hct 41.7 (40.1-51.0) % MCV 91.9 (79.0-92.2) fl MCH 31.5 (25.7-32.2) pg MCHC 34.3 (32.2-35.5) g/dl RDW Std Deviation 46.1 H (35.1-43.9) fL Plt Count 215 (163-337) K/mm3 MPV 10.8 (9.4-12.3) fl Neutrophils % (Manual) 78 H (40-60) % Band Neutrophils % 0 (0-10) % Lymphocytes % (Manual) 10 L (20-40) % Atypical Lymphs % 3 % Monocytes % (Manual) 7 (2-10) % Eosinophils % (Manual) 1 (0.8-7.0) % Basophils % (Manual) 1 (0.2-1.2) Platelet Estimate Adequate Plt Morphology Comment Normal RBC Morph Comment Normal Sodium 138 (136-145) mEq/L Potassium 4.0 (3.5-5.1) mEq/L Chloride 104 (98-107) mEq/L Carbon Dioxide 25 (21-32) mEq/L Anion Gap 13.0 (5-15) BUN 12 (7-18) mg/dL Creatinine 0.9 (0.7-1.3) mg/dL Est Cr Clr Drug Dosing 80.73 mL/min Estimated GFR (MDRD) > 60 (>60) mL/min BUN/Creatinine Ratio 13.3 L (14-18) Glucose 103 (74-106) mg/dL Calcium 10.0 (8.5-10.1) mg/dL Total Bilirubin 0.5 (0.2-1.0) mg/dL AST 20 (15-37) U/L ALT 29 (16-63) U/L Alkaline Phosphatase 94 (46-116) U/L Total Protein 7.2 (6.4-8.2) g/dl Albumin 3.8 (3.4-5.0) g/dl Globulin 3.4 gm/dL Albumin/Globulin Ratio 1.1 (1-2) Lipase 147 (73-393) U/L Urine Color Light yellow (Yellow) Urine Appearance Cloudy H (Clear) Urine pH 7.0 (5.0-8.0) Ur Specific [place] 1.020 (1.005-1.030) Urine Protein Negative (Negative) Urine Glucose (UA) Negative (Negative) Urine Ketones Negative (Negative) Urine Occult Blood Negative (Negative) Urine Nitrite Negative (Negative) Urine Bilirubin Negative (Negative) Urine Urobilinogen 0.2 (0.2-1.0) Ur Leukocyte Esterase Negative (Negative) Urine RBC Not seen (0-5) /hpf Urine WBC Not seen (0-5) /hpf Ur Epithelial Cells 0-5 (0-5) /hpf Ur Squamous Epith Cells Not seen (0-5) /hpf Amorphous Sediment Many H (NOT SEEN) /hpf Urine Bacteria Not seen (FEW) /hpf Urine Mucus Not seen (FEW) /hpf - Re-Assessments/Exams Free Text/Narrative Re-Assessment/Exam: 12/02/17 18:19 KUB and upright are nondiagnostic GI workup labs are normal. I had difficulty ambulating the patient he can stand up with his own strength with the aid of a walker and contact assist but couldn't move. I discussed the situation with Dr. Roberson on-call neurologist at [facility] in [place] after discussing situation with our hospitalist here to does not feel comfortable admitting the patient with minimal resources. Case was discussed with Dr. Sheridan hospitalist at [facility] who will accept the patient and consult neurology. Departure - Departure Time of Disposition: 17:51 Disposition: DC/Tfer to Acute Hospital 02 Clinical Impression: Increased weakness when ambulating, ALS (amyotrophic lateral sclerosis), History of bilateral inguinal hernias Abdominal pain Qualifiers: Abdominal location: generalized Qualified Code(s): R10.84 - Generalized abdominal pain - Discharge Information Referrals: PCP,Unknown [Ordering Only Provider] - Forms: ED Department Discharge - My Orders Last 24 Hours: My Active Orders 12/02/17 14:06 Abdomen 2V AP Flat Upright [CR] Stat - Assessment/Plan Last 24 Hours: My Active Orders 12/02/17 14:06 Abdomen 2V AP Flat Upright [CR] Stat
--- NOTE | 2017-12-04 15:05 | CR ---
Abdomen: Supine and upright views of the abdomen were obtained. Comparison: Previous abdominal x-ray of 10/21/17. Bowel gas pattern is normal. No free air is seen. Minimal vascular calcification is seen. No discrete soft tissue abnormality is seen. Bony structures appear within normal limits for the patient's age. Impression: 1. Nothing acute is seen on two-view abdominal x-ray. Diagnostic code #2
== END 2017-12-02 18:27 ==
LOC: JD.ED 12:59
DX: G12.21 Amyotrophic lateral sclerosis (principal); K40.20 Bilateral inguinal hernia, without obstruction or gangrene, not specified as recurrent; R10.84 Generalized abdominal pain; Z79.899 Other long term (current) drug therapy
CPT/HCPCS: 36415; 74019; 74019-26; 80053; 81001; 83690; 85007; 85027; 99284; 99285